=== PATIENT | male | born 1935 | race Two or more races ===

== ENCOUNTER 2020-02-05 22:58 | Inpatient (IN) | payer MEDICARE, OTHER ==
[~2020-02-05] VITALS: Ht 172.7 cm; Wt 88.5 kg
--- NOTE | 2020-02-05 23:11 | NUR ---
MARCELA FROM [facility] FOR C/O FEVER. PT ALERT AND RESPONSIVE. BREATHING EVENLY. SATTING 94-96% ON R/A. PT WAS ASSISTED TO BED 5. PLACED ON A MONITOR AND ISOLATION PRECAUTION. WILL CONT TO MONITOR.
[2020-02-05] MEDS ORDERED: ACETAMINOPHEN 650 MG/SUPP.RECT RC ONE ×3 (23:12→23:30)
--- NOTE | 2020-02-05 23:16 | NUR ---
URINE COLLECTED AND SENT TO LAB
--- NOTE | 2020-02-05 23:18 | NUR ---
COVID SWAB COLLECTED AND SENT TO LAB
--- NOTE | 2020-02-05 23:20 | NUR ---
IV INITATED LAC 20G. LABS DRAWN FROM SITE. ELECTRIC WELL LOGGING OPERATOR AT BEDSIDE FOR COLLECTION. IV INTACT AND PATENT, PLACED ON SALINE LOCK
[2020-02-05] MEDS ORDERED: VANCOMYCIN 1 GM VIAL ONE (23:29)
[2020-02-05] MEDS ORDERED: PIPERACILLIN /TAZOBACTAM 3.375 G VIAL IV ONE (23:29)
[2020-02-05 23:30] LABS: BASOPHILS % (AUTO) 0.6 % (0.0-2.0); EOSINOPHILS % (AUTO) 1.2 % (0.0-6.0); HEMATOCRIT 38 % (39-51); HEMOGLOBIN 12.6 g/dL (13.5-17.5); LYMPHOCYTES # (AUTO) 0.6 /CMM (0.8-4.8); LYMPHOCYTES % (AUTO) 8.3 % (20.0-44.0); MEAN CORPUSCULAR HGB CONC 33 g/dl (31.0-36.0); MEAN CORPUSCULAR VOLUME 92 fL (80-96); MONOCYTES # (AUTO) 0.6 /CMM (0.1-1.30); MONOCYTES % (AUTO) 7.2 % (2.0-12.0); NEUTROPHILS # (AUTO) 6.4 /CMM (1.8-8.9); NEUTROPHILS % (AUTO) 82.7 % (43.0-81.0); PLATELET COUNT (AUTO) 185 /CMM (150-450); RED BLOOD CELL COUNT(AUTO) 4.11 MIL/uL (4.5-6.0); WHITE BLOOD COUNT (AUTO) 7.7 K/uL (4.3-11.0)
[2020-02-05] MEDS ORDERED: IV NS 0.9% 1,000 ML BAG IV ONE ×2 (23:30)
[2020-02-05] MEDS ORDERED: PIPERACILLIN /TAZOBACTAM 3.375 G in IV D5W 50 ML IV ONE (23:30)
[2020-02-05] MEDS ORDERED: VANCOMYCIN 1 GM in IV D5W 250 ML IV ONE (23:30)
[2020-02-05 23:31] LABS: APPEARANCE,URINE Clear (CLEAR); BILIRUBIN,URINE Negative (NEGATIVE); BLOOD, URINE Trace-intact Ery/uL (NEGATIVE); COLOR,URINE Yellow (YELLOW); KETONES,URINE Negative (NEGATIVE); LEUKOCYTE ESTERASE ,URINE Negative (NEGATIVE); NITRITE, URINE Negative (NEGATIVE); PH,URINE 6.5 (5.0-8.0); PROTEIN,URINE Negative (NEGATIVE); UGLUCOSE Negative (NEGATIVE)
--- NOTE | 2020-02-05 23:34 | NUR ---
RT AT BEDSIDE FOR ABG
[2020-02-05 23:37] LABS: CALCIUM, SERUM 8.5 mg/dL (8.5-10.1); CARBON DIOXIDE 26 mmol/L (21-32); CHLORIDE 107 mmol/L (98-107); CREATININE 1.3 mg/dL (0.6-1.3); GLUCOSE 138 mg/dL (74-106); POTASSIUM 3.4 mmol/L (3.5-5.1); SODIUM SERUM 143 mmol/L (136-145); UREA NITROGEN, BLOOD 21 mg/dL (7-18)
[2020-02-05 23:40] LABS: ABG BASE EXCESS -0.5 mmol/L; ABG PCO2 36.2 mmHg (35.0-45.0); ABG PH 7.429 (7.350-7.450); ABG PO2 70.1 mmHg (75.0-100.0); AaDO2 36.3 mmHg; COHb 0.3 % (0.5-1.5); MetHb 0.4 % (0.0-1.5); O2Hb 92.3 % (94.0-97.0); SITE, ABG Left Radial; VENT MODE, BG room air
[2020-02-05] MEDS ORDERED: DOCU100C36 PO (23:45)
[2020-02-05] MEDS ORDERED: TRAZ-182 PO (23:45)
[2020-02-05] MEDS ORDERED: METO25TA6 PO (23:45)
[2020-02-05] MEDS ORDERED: ASPI-1169 PO (23:45)
[2020-02-05] MEDS ORDERED: MULT-754 PO (23:45)
[2020-02-05] MEDS ORDERED: DIVA500T2 GT (23:45)
[2020-02-05] MEDS ORDERED: ATOR80TA PO (23:45)
--- NOTE | 2020-02-05 23:46 | NUR ---
patient pulled out iv.
--- NOTE | 2020-02-05 23:48 | NUR ---
PT SEEMS AGITATED. CONSTANTLY MOVING IN BED AND PULLED OUT HIS IV LINE. MD JUAREZ AWARE W/ A NEW ORDER FOR ATIVAN. NOTED
[2020-02-05 23:49] LABS: ALANINE AMINOTRANSFERASE 25 U/L (12-78); ALBUMIN 3.6 g/dL (3.4-5.0); ALKALINE PHOSPHATASE 112 U/L (46-116); ASPARTATE AMINOTRANSFERASE 28 U/L (15-37); B-TYPE NATRIURETIC PEPTIDE 317 PG/ML (0-125); BILIRUBIN,DIRECT 0.1 mg/dL (0.0-0.2); BILIRUBIN,TOTAL 0.6 mg/dL (0.2-1.0); TOTAL PROTEIN, SERUM 6.7 g/dL (6.4-8.2)
[2020-02-05] MEDS ORDERED: LORAZEPAM INJ 2 MG/ML VIAL ONE (23:49)
[2020-02-05 23:50] LABS: D-DIMER 0.75 mg/L(FEU (0.17-0.50)
--- NOTE | 2020-02-05 23:52 | NUR ---
RADIOLOGY AT BEDSIDE FOR CXR
[2020-02-06] LABS: BACTERIA,URINE Few /HPF (None Seen); SQUAMOUS EPITHELIAL CELL,UR Few /HPF (None Seen); WBC,URINE 0-2 /HPF (0-3)
[2020-02-06 00:01] LABS: C-REACTIVE PROTEIN 1.9 mg/dL (0.0-0.9); CREATINE KINASE, TOTAL 157 U/L (39-308); FERRITIN 81 ng/mL (8-388)
--- NOTE | 2020-02-06 00:04 | NUR ---
NEW IV LINE ESTABLISHED ON THE LEFT AC 20G.
--- NOTE | 2020-02-06 00:15 | NUR ---
PAGED NURSE SUP FOR TELE BED
--- NOTE | 2020-02-06 00:22 | NUR ---
BED ASSIGNMENT 103
[2020-02-06] MEDS ORDERED: LORAZEPAM INJ 2 MG/ML VIAL IV ONE (00:30)
--- NOTE | 2020-02-06 00:34 | NUR ---
REPORT GIVEN TO AMARJIT ZIMMERMAN FOR RIVAS
--- NOTE | 2020-02-06 00:35 | NUR ---
0035 REPORT RECEIVED FROM AMARJIT JIMENEZ WITH QUESTIONS ANSWERED.
--- NOTE | 2020-02-06 00:45 | NUR ---
0045 ADMITTED FROM ER 84 YEAR OLD ISRAELI SPEAKING MALE VIA GURNEY FOR FEVER, R/O COVID. PATIENT AWAKE AND VERBALLY RESPONSIVE. CONFUSED AND UNABLE TO PROVIDE INFORMATION WHEN ASKED. PLACED ON NATURAL RESOURCES EXTENSION EDUCATOR. SR IN THE 80S. DENIED PAIN WHEN ASKED THRU ISRAELI SPEAKING STAFF. ADMISSION CARE RENDERED. TOTALLY DEPENDENT ON ALL ASPECTS OF ADLS. INCONTINENT OF BOWEL AND BLADDER. NO SKIN BREAKDOWN NOTED. ON ROOM AIR WITH NO SIGNS OF RESPIRATORY DISTRESS NOTED. VITAL SIGNS TAKEN AND RECORDED. PLACED ON DROPLET ISOLATION FOR SUSPECTED COVID. ALL PRECAUTIONS STRICTLY OBSERVED. PATIENT WEARING SURGICAL MASK. CALL LIGHT PLACED WITHIN REACH AND INSTRUCTED TO USE FOR ASSISTANCE.
--- NOTE | 2020-02-06 00:50 | NUR ---
PT TRANSFERED PER [facility] [employer]
[2020-02-06] MEDS ORDERED: ONDANSETRON HCL/PF 4 MG/2 ML VIAL IVP PRN (01:00)
[2020-02-06] MEDS ORDERED: ACETAMINOPHEN 650 MG/SUPP.RECT RC PRN (01:00)
[2020-02-06] MEDS ORDERED: IV NS 0.9% 1,000 ML IV SCH (01:00)
--- NOTE | 2020-02-06 01:30 | NUR ---
0130 HARDEEP ALEX NOTIFIED US THAT SHE SPOKE WITH PATIENT'S SON DR. BERTO PARSONS JR AND HE VERIFIED PATIENT'S CODE STATUS DNR/DNI.
[2020-02-06] MEDS: ENOXAPARIN SODIUM 40 MG/0.4 ML DISP.SYRIN SQ SCH (01:50)
--- NOTE | 2020-02-06 02:20 | NUR ---
0220 PATIENT IS VERY CONFUSED AND IS TRYING TO GET OUT OF BED AND PULL HIS IV ACCESS DESPITE REDIRECTION. CONT TO DENY PAIN WHEN ASKED. KEPT CLEAN AND DRY. CALL LIGHT PLACED WITHIN REACH. NEEDS ATTENDED. HARDEEP ALEX NOTIFIED OF PATIENT'S CONFUSION WITH ORDER MADE. CRITICAL LACTIC RESULT 2.6 RELAYED WITH ORDER TO GIVE 1L NS BOLUS. ORDER NOTED AND CARRIED OUT.
[2020-02-06] MEDS ORDERED: IV NS 0.9% 1,000 ML IV ONE (02:30)
[2020-02-06] MEDS ORDERED: PIPERACILLIN /TAZOBACTAM 3.375 G VIAL IV ONE (05:47)
[2020-02-06] MEDS: PIPERACILLIN /TAZOBACTAM 3.375 G in IV D5W 50 ML IV SCH ×3 (05:55→20:33)
[2020-02-06] MEDS ORDERED: FEE PK DOSING 1 MIN EA MC ONE (06:44)
[2020-02-06 06:46] LABS: ALBUMIN 2.8 g/dL (3.4-5.0); BASOPHILS % (AUTO) 0.3 % (0.0-2.0); BILIRUBIN,TOTAL 0.8 mg/dL (0.2-1.0); CALCIUM, SERUM 7.5 mg/dL (8.5-10.1); CREATININE 1.1 mg/dL (0.6-1.3); EOSINOPHILS % (AUTO) 0.5 % (0.0-6.0); HEMATOCRIT 32 % (39-51); HEMOGLOBIN 10.7 g/dL (13.5-17.5); LYMPHOCYTES # (AUTO) 1.5 /CMM (0.8-4.8); LYMPHOCYTES % (AUTO) 17.7 % (20.0-44.0); MAGNESIUM 1.7 mg/dL (1.8-2.4); MEAN CORPUSCULAR HGB CONC 34 g/dl (31.0-36.0); MEAN CORPUSCULAR VOLUME 92 fL (80-96); MONOCYTES # (AUTO) 0.8 /CMM (0.1-1.30); MONOCYTES % (AUTO) 9.4 % (2.0-12.0); NEUTROPHILS % (AUTO) 72.1 % (43.0-81.0); PHOSPHORUS 2.8 mg/dL (2.5-4.9); PLATELET COUNT (AUTO) 148 /CMM (150-450); POTASSIUM 3.1 mmol/L (3.5-5.1); RED BLOOD CELL COUNT(AUTO) 3.47 MIL/uL (4.5-6.0); TOTAL PROTEIN, SERUM 5.5 g/dL (6.4-8.2); WHITE BLOOD COUNT (AUTO) 8.4 K/uL (4.3-11.0)
[2020-02-06 06:56] LABS: THYROID STIMULATING HORMONE 1.979 uIU/mL (0.358-3.74)
--- NOTE | 2020-02-06 07:30 | NUR ---
RN OPENING NOTE: Received patient in bed. Awake, alert and confused. PAtient on bilateral soft-wrist restraints. Isolation precaution to R/O covid in place. No pain noted nor reported. IV site clean, dry, patent and intact. IV infusion running and being tolerated well. Tele monitor showing sinus bradycardia @ 58 noted. Call light in reach. Bed locked, low and at semi-hugo's position. Side rails up x3. Safety ensured and observed. Will continue to monitor.
[2020-02-06] MEDS ORDERED: IV NS 0.9% 1,000 ML IV PRN (07:43)
[2020-02-06] MEDS: PANTOPRAZOLE 40 MG VIAL IV SCH (09:21)
[2020-02-06] MEDS ORDERED: Magnesium 1GM/D5W 100ML PREMIX 100 ML IV SCH (10:00)
[2020-02-06] MEDS: MULTIVITAMINS,THERAGRAN 1 UDTAB TABLET PO SCH (10:40)
[2020-02-06] MEDS: ASPIRIN 81 MG TAB.CHEW PO SCH (10:40)
[2020-02-06] MEDS: DIVALPROEX SODIUM 250 MG TABLET.DR PO SCH ×2 (10:41→17:00)
[2020-02-06] MEDS: DOCUSATE SODIUM 100 MG CAPSULE PO SCH (10:41)
[2020-02-06] MEDS: METOPROLOL TARTRATE 25 MG TABLET PO SCH ×2 (10:41→17:00)
[2020-02-06] MEDS: POTASSIUM CHLORIDE 20 MEQ TAB.PRT.SR PO SCH ×2 (11:28→13:42)
[2020-02-06] MEDS ORDERED: ASPIRIN 81 MG TAB.CHEW PO SCH (13:00)
--- NOTE | 2020-02-06 16:01 | NUR ---
PT AGITATED AND FIGHTING, RN/ABDIFATAH ASKED TO DO THE EXAM LATER WHEN PT IS SEDATED
[2020-02-06] MEDS ORDERED: VANCOMYCIN 1.25 GM in IV D5W 250 ML IV SCH (18:00)
--- NOTE | 2020-02-06 19:40 | NUR ---
RN CLOSING NOTE: Behavior of pulling lines and being non compliant with care observed with patient throughout shift. IV site was re-started twice on shift with both instances eventually being pulled out by patient. Restraints noted to be not as effective because patient is able to release himself from the restraints. Patient was seen by Juan Luis Erazo earlier on shift and is aware of all the issues stated above. Midline insertion ordered for patient, scheduled IV infusions held as per instructions. Code status was confirmed with son ( Nicolas Hayes Jr.) as DNR/DNI per Juan Luis Erazo's instructions. Midline was started later on shift but patient noted with agitation episodes and confusion due to dementia, IV infusions to be restarted when patient has calmed down. Patient remains awake, alert and confused. appears cooperative but agitation still noted. Patient currently back on bilateral soft-wrist restraint. Isolation precaution to R/O covid in place. No pain noted nor reported. IV site clean, dry, patent, intact and hidden from patient. Tele monitor showing sinus bradycardia. Call light in reach. Bed locked, low and at semi-hugo's position. Side rails up x3. Safety ensured and observed. Applicable due medications given. Treatment given as ordered. Endorsed to oncoming shift for RIVAS.
--- NOTE | 2020-02-06 19:55 | NUR ---
RN OPENING NOTE: Received patient in bed. Awake, alert and confused. PAtient on bilateral soft-wrist restraints. Isolation precaution to R/O covid in place. No pain noted nor reported. IV site clean, dry, patent and intact. IV infusion running and being tolerated well. Tele monitor showing sinus bradycardia @ 58 noted. Call light in reach. Bed locked, low and at semi-hugo's position. Side rails up x3. Safety ensured and observed. Will continue to monitor. Addendum: 02/06/20 at 2013 by ABDIAFTAH CANADA RN wrong time charting
[2020-02-06 20:00] VITALS: BP 141/49
[2020-02-06] MEDS: Magnesium 1GM/D5W 100ML PREMIX 100 ML IV SCH ×2 (20:00→20:32)
[2020-02-06] MEDS ORDERED: ATORVASTATIN 40 MG TABLET PO SCH (22:00)
--- NOTE | 2020-02-06 22:45 | NUR ---
PATIENT PULLED OUT MIDLINE, SAYS HE NEEDED TO GO TO RESTROOM. MINIMAL BLOOD LOSS WAS ASSESSED. PATIENT IS BACK IN BED. SITTER OUTSIDE ROOM.
[2020-02-06] MEDS: TRAZODONE 50 MG TABLET PO SCH (23:00)
[2020-02-07] VITALS: BP 152/40
--- NOTE | 2020-02-07 00:45 | NUR ---
NEW MIDLINE INSERTED ON SO #18. PATENT AND FLUSHING. RESTRAINTS ON PATIENT AND SITTER OUTSIDE OF ROOM.
[2020-02-07] MEDS: ENOXAPARIN SODIUM 40 MG/0.4 ML DISP.SYRIN SQ SCH (01:52)
[2020-02-07] MEDS ORDERED: VANCOMYCIN 1.25 GM in IV D5W 250 ML IV SCH (02:00)
--- NOTE | 2020-02-07 02:18 | NUR ---
CALLED [facility] AFTER HOURS. REGARDING PATIENTS IV MEDICATIONS THAT HAVE NOT BEEN GIVEN DUE TO PATIENT PULLING OUT IV. PHARMACIST IS AWARE AND WILL CHANGE TIMES.
[2020-02-07] MEDS ORDERED: Magnesium 1GM/D5W 100ML PREMIX 100 ML IV SCH (03:00)
[2020-02-07] MEDS: PIPERACILLIN /TAZOBACTAM 3.375 G in IV D5W 50 ML IV SCH ×4 (03:11→17:07)
[2020-02-07 04:00] VITALS: BP 158/75
[2020-02-07 06:35] LABS: BASOPHILS % (AUTO) 0.4 % (0.0-2.0); HEMATOCRIT 34 % (39-51); HEMOGLOBIN 11.3 g/dL (13.5-17.5); LYMPHOCYTES # (AUTO) 1.5 /CMM (0.8-4.8); MEAN CORPUSCULAR HGB CONC 34 g/dl (31.0-36.0); MEAN CORPUSCULAR VOLUME 92 fL (80-96); MONOCYTES # (AUTO) 0.6 /CMM (0.1-1.30); MONOCYTES % (AUTO) 7.6 % (2.0-12.0); NEUTROPHILS # (AUTO) 4.9 /CMM (1.8-8.9); PLATELET COUNT (AUTO) 160 /CMM (150-450); RED BLOOD CELL COUNT(AUTO) 3.65 MIL/uL (4.5-6.0); WHITE BLOOD COUNT (AUTO) 7.3 K/uL (4.3-11.0)
[2020-02-07 06:40] LABS: ALBUMIN 2.8 g/dL (3.4-5.0); CALCIUM, SERUM 8.1 mg/dL (8.5-10.1); CREATININE 0.9 mg/dL (0.6-1.3); MAGNESIUM 2.3 mg/dL (1.8-2.4); PHOSPHORUS 3.2 mg/dL (2.5-4.9); POTASSIUM 3.5 mmol/L (3.5-5.1); TOTAL PROTEIN, SERUM 5.7 g/dL (6.4-8.2)
--- NOTE | 2020-02-07 07:00 | NUR ---
RN NOTE: RECEIVED PT ON BED , A/Ox1, CONFUSED, ON RA, RESPIRATION EVEN AND UNLABORED, NO SOB NOTED , ON TELE SR HR IN 70'S , PT IS ABLE TO GETS OUT OF THE BED AND PULLS ON HIS IV LINES , AND MANAGE TO GET OUT OF MARYJO WRIST PROTECTIVE DEVICE AT TIMES, SITTER AT THE BEDSIDE FOR PT'S SAFETY, SR UP x3, CALL LIGHT WITHIN EASY REACH, BED LOCKED AND IN LOWEST POSITION, R UPPER ARM MIDLINE INTACT, SWALLOWING EVAL IS PENDING , PT IS NPO AT THIS TIME, CONTINUE TO MONITOR .
[2020-02-07 08:00] VITALS: BP 154/56
[2020-02-07] MEDS: PANTOPRAZOLE 40 MG VIAL IV SCH (08:22)
[2020-02-07] MEDS: ASPIRIN 81 MG TAB.CHEW PO SCH (08:22)
[2020-02-07] MEDS: DOCUSATE SODIUM 100 MG CAPSULE PO SCH (08:22)
[2020-02-07] MEDS: DIVALPROEX SODIUM 250 MG TABLET.DR PO SCH ×2 (08:22→16:28)
[2020-02-07] MEDS: METOPROLOL TARTRATE 25 MG TABLET PO SCH ×2 (08:23→16:28)
[2020-02-07] MEDS: MULTIVITAMINS,THERAGRAN 1 UDTAB TABLET PO SCH (08:24)
--- NOTE | 2020-02-07 10:38 | NUR ---
WOUND CARE CONSULT: REVIEWED CHART AND SPOKE WITH NURSING STAFF REGARDING PREVIOUS GERMAINE SCORE OF 10. PER NURSING STAFF, PT IS NOW AMBULATORY WITH CURRENT GERMAINE OF 20. WILL SEE PRN.
--- NOTE | 2020-02-07 12:00 | NUR ---
RN NOTES PATIENT CONFUSED AND PULLED R UPPER ARM MIDLINE OUT WHILE HE WAS OFF MARYJO. SOFT RESTRAINS. RESTRAINS PLACED BACK ON PT WRISTS FOR HIS SAFETY .
--- NOTE | 2020-02-07 12:00 | NUR ---
AMARJIT NOTES NEW IV G 20 INSERTED ON R UPPER ARM. Addendum: 02/07/20 at 1300 by ESTEFANÍA MADISON RN CORRECTION NEW IV G 20 INSERTED ON LEFT UPPER ARM.
--- NOTE | 2020-02-07 13:00 | NUR ---
RN NOTES PT GOT AGITATED AND TEARED APART THE MARYJO. SOFT RESTRAINS, PT IS MORE COOPERATIVE WITH NO WRIST RESTRAINS ON . SITTER AT THE BEDSIDE FOR PT SAFETY, RESTRAINS DISCONTINUED PER MD ORDER .
[2020-02-07 16:00] VITALS: BP 145/78
--- NOTE | 2020-02-07 18:15 | NUR ---
RN NOTES PT PULLED OUT L UPPER ARM IV OUT, PT IS VERY STRONG AND GETS AGITATED EASILY, LUCY SKY DIVER NOITFED , NEW ORDER RECEIVED .
--- NOTE | 2020-02-07 18:30 | NUR ---
RN NOTES PT STABLE, SITTER AT THE BEDSIDE, NO DISTRESS NOTED, WILL ENDORSE TO NOTCHER NURSE FOR CONTINUITY OF CARE.
[2020-02-07] MEDS: QUETIAPINE FUMARATE 25 MG TABLET PO SCH (18:33)
--- NOTE | 2020-02-07 19:05 | NUR ---
RN OPENING NOTES RECEIVED PT ON BED AWAKE A/O X 3 TURK[place] SPEAKING NO AGITATION NOTED AT THIS SITTER AVAILABLE WATCHING PATIENT, NO SIGN AND SYMPTOMS OF RESPIRATORY DISTRESS, SPO2 98% VIA RA, DROPLET ISOLATION MAINTAINED FOR R/O COVID SAFETY MEASURE MAINTAINED BED ON LOWEST POSITION AND CALL LIGHT WITHIN REACH WILL CONT TO MONITOR
[2020-02-07 20:00] VITALS: BP 123/75
[2020-02-07] MEDS: TRAZODONE 50 MG TABLET PO SCH (22:10)
[2020-02-08] MEDS: ENOXAPARIN SODIUM 40 MG/0.4 ML DISP.SYRIN SQ SCH (00:01)
[2020-02-08] MEDS: PIPERACILLIN /TAZOBACTAM 3.375 G in IV D5W 50 ML IV SCH ×4 (00:05→12:05)
[2020-02-08 04:00] VITALS: BP 130/74
[2020-02-08 06:15] LABS: BASOPHILS % (AUTO) 0.5 % (0.0-2.0); EOSINOPHILS % (AUTO) 6.8 % (0.0-6.0); HEMATOCRIT 34 % (39-51); HEMOGLOBIN 11.6 g/dL (13.5-17.5); LYMPHOCYTES # (AUTO) 1.7 /CMM (0.8-4.8); LYMPHOCYTES % (AUTO) 27.2 % (20.0-44.0); MEAN CORPUSCULAR HGB CONC 34 g/dl (31.0-36.0); MEAN CORPUSCULAR VOLUME 91 fL (80-96); MONOCYTES # (AUTO) 0.6 /CMM (0.1-1.30); MONOCYTES % (AUTO) 10.1 % (2.0-12.0); NEUTROPHILS # (AUTO) 3.4 /CMM (1.8-8.9); NEUTROPHILS % (AUTO) 55.4 % (43.0-81.0); PLATELET COUNT (AUTO) 195 /CMM (150-450); RED BLOOD CELL COUNT(AUTO) 3.73 MIL/uL (4.5-6.0); WHITE BLOOD COUNT (AUTO) 6.1 K/uL (4.3-11.0)
[2020-02-08 06:47] LABS: CALCIUM, SERUM 8.1 mg/dL (8.5-10.1); CREATININE 1.1 mg/dL (0.6-1.3); POTASSIUM 3.4 mmol/L (3.5-5.1)
--- NOTE | 2020-02-08 07:30 | NUR ---
RN OPENING NOTE RECEIVED PATIENT RESTING IN BED, NO ACUTE DISTRESS NOTED. A/O X2, PATIENT IS CONFUSED. ON ROOM AIR SATURATING WELL, NO ACUTE RESPIRATORY DISTRESS NOTED. PATIENT HAS A SITTER PRESENT AT BEDSIDE. SAFETY MAINTAINED, CALL LIGHT WITHIN REACH, WILL CONTINUE TO MONITOR CLOSELY.
--- NOTE | 2020-02-08 07:42 | NUR ---
RN CLOSING NOTES PT ON BED SLEEPING SITTER AT BEDSIDE, NO SIGN AND SYMPTOMS OF RESPIRATORY DISTRESS, ON RA SPO2 99% ALL NEEDS ATTENDED NO SIGNIFICANT CHANGES ON CONDITION NOTED SAFETY MEASURE MAINTAINED WILL ENDORSED TO AM SHIFT NURSE
[2020-02-08 08:00] VITALS: BP 131/84
[2020-02-08] MEDS: DOCUSATE SODIUM 100 MG CAPSULE PO SCH (08:06)
[2020-02-08] MEDS: MULTIVITAMINS,THERAGRAN 1 UDTAB TABLET PO SCH (08:06)
[2020-02-08] MEDS: DIVALPROEX SODIUM 250 MG TABLET.DR PO SCH ×2 (08:06→17:55)
[2020-02-08] MEDS: PANTOPRAZOLE 40 MG VIAL IV SCH (08:06)
[2020-02-08] MEDS: QUETIAPINE FUMARATE 25 MG TABLET PO SCH ×2 (08:07→17:56)
[2020-02-08] MEDS: METOPROLOL TARTRATE 25 MG TABLET PO SCH ×2 (08:07→17:56)
[2020-02-08] MEDS: ASPIRIN 81 MG TAB.CHEW PO SCH (08:08)
[2020-02-08] MEDS ORDERED: POTASSIUM CHLORIDE 20 MEQ POWDER PACKET PO SCH (12:00)
--- NOTE | 2020-02-08 12:20 | NUR ---
RN NOTE PATIENT IS CONFUSED. PULLED OUT HIS IV LINE ONCE AGAIN. MD NOTIFIED. OK TO KEEP PATIENT WITHOUT AN IV ACCESS FOR NOW. MD WILL ADJUST PATIENT MEDS TO PO. UNABLE TO HANG ZOSYN. WILL TALK TO ID FOR ALTERNATIVE. SAFETY MAINTAINED, CALL LIGHT WITHIN REACH, SITTER AT BEDSIDE, WILL CONTINUE TO MONITOR.
[2020-02-08 16:00] VITALS: BP 152/60
[2020-02-08] MEDS ORDERED: CEFTRIAXONE 1 G VIAL IM SCH (18:00)
--- NOTE | 2020-02-08 19:28 | NUR ---
RN NOTE ALL PATIENT NEEDS MET, NO ACUTE CHANGES TO PATIENT CONDITION DURING MY SHIFT. ID SAW THE PATIENT AND ADJUSTED IV MEDICATION DUE TO NO IV ACCESS. SAFETY MAINTAINED, CALL LIGHT WITHIN REACH, ENDORSED TO PM NURSE FOR CONTINUITY OF CARE.
--- NOTE | 2020-02-08 19:30 | NUR ---
received patient awake and walking in the room. client is A/O X 3. no s/s of pain or distress, the client denies pain a this time. VS WNL. All needs rendered at this time, will continue to monitor. Safety mechanisms in place. Bed locked in the lowest position and call light within reach, will continue to monitor.
[2020-02-08 20:00] VITALS: BP 100/59
[2020-02-08] MEDS: TRAZODONE 50 MG TABLET PO SCH (21:29)
--- NOTE | 2020-02-08 22:49 | NUR ---
RN OPENING Received the patient resting in bed. VS WNL, no s/s of pain noted. The client is nonverbal, obtunded. The client exhibits no distress at this time. On external monitor, SR, HR 80's. D5 NS running at 75ml/hr on R arm. All Iv lines flushing well. All needs rendered at this time. Safety mechanisms in place, bed locked in the lowest position, call light within reach. will continue to monitor.
[2020-02-09] MEDS: ENOXAPARIN SODIUM 40 MG/0.4 ML DISP.SYRIN SQ SCH (00:06)
--- NOTE | 2020-02-09 01:53 | NUR ---
there will be no further documentation as [employer] is bri to be offline. The client is stable no cahnge of condition at this time.
--- NOTE | 2020-02-09 06:53 | NUR ---
all documentation in which the system was down was given to [facility]. The patient was transferred to [facility] at 0620.
[2020-02-09 07:10] LABS: CALCIUM, SERUM 8.1 mg/dL (8.5-10.1); CREATININE 0.9 mg/dL (0.6-1.3); POTASSIUM 3.3 mmol/L (3.5-5.1)
[2020-02-09] MEDS ORDERED: PANTOPRAZOLE 40 MG TABLET.DR PO SCH (07:30)
--- NOTE | 2020-02-09 07:48 | NUR ---
MS RN OPENING NOTE PATIENT IN BED RESTING COMFORTABLY. PATIENT IN NO ACUTE DISTRESS. NO SOB NOTED. PATIENT BREATHING IS EVEN AND UNLABORED. PATIENT WITH 1:1 SITTER. PATIENT BED ALARM IS ON. PATIENT SAFETY PRECAUTIONS IN PLACE. PATIENT BED IS LOCKED AND IN LOWEST POSITION. CALL LIGHT WITHIN REACH. WILL CONTINUE TO MONITOR.
[2020-02-09] MEDS: MULTIVITAMINS,THERAGRAN 1 UDTAB TABLET PO SCH (08:57)
[2020-02-09] MEDS: ASPIRIN 81 MG TAB.CHEW PO SCH (08:57)
[2020-02-09] MEDS: DIVALPROEX SODIUM 250 MG TABLET.DR PO SCH ×2 (08:57→13:03)
[2020-02-09] MEDS: QUETIAPINE FUMARATE 25 MG TABLET PO SCH (08:57)
[2020-02-09] MEDS: METOPROLOL TARTRATE 25 MG TABLET PO SCH (08:58)
[2020-02-09] MEDS: DOCUSATE SODIUM 100 MG CAPSULE PO SCH (08:58)
[2020-02-09] MEDS ORDERED: POTASSIUM CHLORIDE 20 MEQ TAB.PRT.SR PO SCH (10:00)
[2020-02-09 12:00] VITALS: BP 137/71
[2020-02-09] MEDS ORDERED: QUETIAPINE FUMARATE 25 MG TABLET PO SCH (13:00)
--- NOTE | 2020-02-09 15:45 | NUR ---
PINKING MACHINE OPERATOR NOTE PATIENT MEDICALLY CLEARED FOR DISCHARGE. PATIENT IN NO ACUTE DISTRESS. NO SOB NOTED. PATIENT BREATHING IS EVEN AND UNLABORED. DC INSTRUCTIONS PROVIDED TO PATIENT WITH RN ORTHO PRESENT. PATIENT UNABLE TO COMPREHEND. PATIENT ID BAND REMOVED. DC PAPERWORK AND BELONGINGS LIST SIGNED BY TWO NURSES. PATIENT SKIN ASSESSED, NO NEW SKIN BREAKDOWN NOTED. PATIENT KEPT CLEAN, DRY AND COMFORTABLE THROUGHOUT SHIFT. NEEDS AND CONCERNS ADDRESSED. PATIENT WENT BY AMBULANCE WITH TWO LOCOMOTIVE CRANE OPERATOR TO SNF. REPORT GIVEN TO EDY OCASIO AT [facility]. MD AWARE OF DISCHARGE.
== END 2020-02-09 15:50 | DRG 871 ==
LOC: ER 23:00 → TELE1 02-06 00:23 → MEDSG1 02-07 10:41
PROVIDERS: ADMIT Nurse Practitioner Acute Care; ATTEND Nurse Practitioner Acute Care
PROC: 05H533Z Insertion of Infusion Device into Right Subclavian Vein, Percutaneous Approach (ICD-10-PCS; 2020-02-06)
PROC: B546ZZA Ultrasonography of Right Subclavian Vein, Guidance (ICD-10-PCS; 2020-02-06)
PROC: 05H533Z Insertion of Infusion Device into Right Subclavian Vein, Percutaneous Approach (ICD-10-PCS; principal; 2020-02-07)
PROC: B546ZZA Ultrasonography of Right Subclavian Vein, Guidance (ICD-10-PCS; 2020-02-07)
DX: A41.9 Sepsis, unspecified organism (principal); G93.41 Metabolic encephalopathy; I21.A1 Myocardial infarction type 2; J18.9 Pneumonia, unspecified organism; E87.2 Acidosis; N39.0 Urinary tract infection, site not specified; N17.9 Acute kidney failure, unspecified; E44.1 Mild protein-calorie malnutrition; Z86.73 Personal history of transient ischemic attack (TIA), and cerebral infarction without residual deficits; E83.42 Hypomagnesemia; E87.6 Hypokalemia; K21.9 Gastro-esophageal reflux disease without esophagitis; G20 Parkinson's disease; B96.4 Proteus (mirabilis) (morganii) as the cause of diseases classified elsewhere; D63.8 Anemia in other chronic diseases classified elsewhere; E11.22 Type 2 diabetes mellitus with diabetic chronic kidney disease; E66.01 Morbid (severe) obesity due to excess calories; I12.9 Hypertensive chronic kidney disease with stage 1 through stage 4 chronic kidney disease, or unspecified chronic kidney disease; N18.1 Chronic kidney disease, stage 1; Z66 Do not resuscitate; Z87.891 Personal history of nicotine dependence; E88.09 Other disorders of plasma-protein metabolism, not elsewhere classified; Z68.29 Body mass index [BMI] 29.0-29.9, adult; M62.50 Muscle wasting and atrophy, not elsewhere classified, unspecified site; F25.9 Schizoaffective disorder, unspecified; F29 Unspecified psychosis not due to a substance or known physiological condition; D50.9 Iron deficiency anemia, unspecified
CPT/HCPCS: 36415; 36600; 71045-TC; 76705-TC; 80048-TC; 80053-TC; 80061-TC; 80076-TC; 80164-TC; 81000-TC; 82550-TC; 82728-TC; 82803-TC; 83540-TC; 83605-TC; 83615-TC; 83735-TC; 83880; 84100-TC; 84443-TC; 84484-TC; 85025-TC; 85378-TC; 85730-TC; 86140-TC; 87040-TC; 87081-TC; 87086-TC; 87186-TC; 92611-TC; 93307-TC; 97116-TC; 97530-TC; C9113; G0378; J0696; J1650; J2060; J2543; J3370; J3475; J7030; J7050; J7060; U0003-CS

== ENCOUNTER 2023-03-12 15:36 | Inpatient (IN) | payer MEDICARE, OTHER ==
[~2023-03-12] VITALS: Ht 162.6 cm; Wt 63.5 kg
[~2023-03-12 15:36] MED LIST: ASPI-1169 PO; ATOR80TA PO; DIVA500T2 PO; DOCU100C36 PO; METO25TA6 PO; MULT-754 PO; TRAZ-182 PO
[2023-03-12] MEDS ORDERED: MEMA5TAB PO (17:13)
[2023-03-12] MEDS ORDERED: TRAZ-182 PO (17:13)
[2023-03-12] MEDS ORDERED: ATOR40TA PO (17:13)
[2023-03-12] MEDS ORDERED: VALS40TA4 PO (17:13)
[2023-03-12] MEDS ORDERED: LATA2.5D2 EACHEYE (17:13)
[2023-03-12] MEDS ORDERED: MULT-213 PO (17:13)
[2023-03-12] MEDS ORDERED: BISA10SU11 RC (17:14)
[2023-03-12] MEDS ORDERED: DEXT15DR23 EACHEYE (17:14)
[2023-03-12] MEDS ORDERED: ACET-868 PO (17:14)
[2023-03-12] MEDS ORDERED: MAGN400O6 PO (17:14)
[2023-03-12] MEDS ORDERED: NA P133E RC (17:14)
[2023-03-12 17:37] LABS: BASOPHILS % (AUTO) 0.6 % (0.0-2.0); EOSINOPHILS # (AUTO) 0.4 K/uL (0.0-0.7); EOSINOPHILS % (AUTO) 7.3 % (0.0-6.0); HEMATOCRIT 36 % (39-51); HEMOGLOBIN 11.9 g/dL (13.5-17.5); LYMPHOCYTES # (AUTO) 1.9 K/uL (0.8-4.8); LYMPHOCYTES % (AUTO) 35.5 % (20.0-44.0); MEAN CORPUSCULAR HEMOGLOBIN 30 PG (26.0-33.0); MEAN CORPUSCULAR HGB CONC 33 g/dl (31.0-36.0); MEAN CORPUSCULAR VOLUME 93 fL (80-96); MONOCYTES # (AUTO) 0.5 K/uL (0.1-1.30); NEUTROPHILS # (AUTO) 2.6 K/uL (1.8-8.9); NEUTROPHILS % (AUTO) 47.6 % (43.0-81.0); PLATELET COUNT (AUTO) 276 K/uL (150-450); RED BLOOD CELL COUNT(AUTO) 3.92 MIL/uL (4.5-6.0); RED CELL DISTRIBUTION WIDTH 14.2 % (11.5-15.0); WHITE BLOOD COUNT (AUTO) 5.4 K/uL (4.3-11.0)
[2023-03-12 18:05] LABS: CALCIUM, SERUM 8.9 mg/dL (8.5-10.1); CARBON DIOXIDE 26 mmol/L (21-32); CHLORIDE 102 mmol/L (98-107); CREATININE 0.9 mg/dL (0.6-1.3); GLUCOSE 130 mg/dL (74-106); POTASSIUM 4.5 mmol/L (3.5-5.1); SODIUM SERUM 138 mmol/L (136-145); UREA NITROGEN, BLOOD 22 mg/dL (7-18)
[2023-03-12 18:14] LABS: ALANINE AMINOTRANSFERASE 28 U/L (12-78); ALBUMIN 3.6 g/dL (3.4-5.0); ALCOHOL, BLOOD < 3 mg/dL (0-10); ALKALINE PHOSPHATASE 121 U/L (46-116); ASPARTATE AMINOTRANSFERASE 21 U/L (15-37); BILIRUBIN,DIRECT 0.1 mg/dL (0.0-0.2); BILIRUBIN,TOTAL 0.4 mg/dL (0.2-1.0); TOTAL PROTEIN, SERUM 7.4 g/dL (6.4-8.2)
[2023-03-12 18:15] LABS: ACETAMINOPHEN 0 ug/ml (10-30); SALICYLATE < 2.3 mg/dL (2.8-20.0)
[2023-03-13] MEDS ORDERED: MAG HYDROX/AL HYDROX/SIMETH 30 ML UDC PO PRN (00:30)
[2023-03-13] MEDS ORDERED: MAGNESIUM HYDROXIDE 30 ML UDC PO PRN ×2 (00:30→09:30)
[2023-03-13] MEDS ORDERED: BLOOD SUGAR DIAGNOSTIC 1 EACH STRIP IN ONE (01:00)
[2023-03-13 01:39] VITALS: BP 131/57; TEMP 97.6
[2023-03-13 08:00] VITALS: BP 131/57; TEMP 97.6; O2SAT 96
[2023-03-13] MEDS: ASPIRIN 81 MG TAB.CHEW PO SCH (08:31)
[2023-03-13] MEDS ORDERED: BISACODYL SUPP (10 MG) 10 MG/SUPP.RECT SUPP.RECT RC PRN (09:30)
[2023-03-13] MEDS ORDERED: NA PHOS,M-B/NA PHOS,DI-BA 1 EA ENEMA RC PRN (09:30)
[2023-03-13] MEDS ORDERED: ACETAMINOPHEN 325 MG TABLET PO PRN ×2 (09:30)
[2023-03-13] MEDS: LORAZEPAM 0.5 MG TABLET PO PRN (10:34)
[2023-03-13 16:00] VITALS: BP 120/61; TEMP 98; O2SAT 97
[2023-03-13] MEDS: METOPROLOL TARTRATE 25 MG TABLET PO SCH (16:34)
[2023-03-13] MEDS: VALSARTAN 40 MG TABLET PO SCH (16:35)
[2023-03-13 20:00] VITALS: BP 138/68; TEMP 97.6; O2SAT 97
[2023-03-13] MEDS ORDERED: DIVALPROEX SODIUM 500 MG TABLET.DR PO SCH (21:00)
[2023-03-13] MEDS: POLYVINYL ALCOHOL 15 ML BOTTLE EACHEYE SCH (21:19)
[2023-03-13] MEDS: TEMAZEPAM 7.5 MG CAPSULE PO PRN (21:21)
[2023-03-13] MEDS: ATORVASTATIN 40 MG TABLET PO SCH (21:23)
[2023-03-13] MEDS: LATANOPROST EYE DROP 0.005% 2.5 ML BOTTLE EACHEYE SCH (21:25)
[2023-03-13] MEDS ORDERED: ATORVASTATIN 40 MG TABLET PO SCH (22:00)
[2023-03-14] MEDS: LORAZEPAM 0.5 MG TABLET PO PRN ×2 (01:09→19:51)
[2023-03-14] MEDS: METOPROLOL TARTRATE 25 MG TABLET PO SCH ×2 (09:00→18:03)
[2023-03-14] MEDS: VALSARTAN 40 MG TABLET PO SCH ×2 (09:00→18:02)
[2023-03-14] MEDS ORDERED: ASPIRIN 81 MG TAB.CHEW PO SCH (09:00)
[2023-03-14] MEDS: DIVALPROEX SODIUM 500 MG TABLET.DR PO SCH ×3 (11:00→21:02)
[2023-03-14 16:00] VITALS: BP 142/76; TEMP 97.8; O2SAT 96
[2023-03-14] MEDS: POLYVINYL ALCOHOL 15 ML BOTTLE EACHEYE SCH ×2 (16:00→21:03)
[2023-03-14] MEDS: DOCUSATE SODIUM 100 MG CAPSULE PO SCH (16:00)
[2023-03-14] MEDS: MULTIVITAMINS,THERAGRAN 1 UDTAB TABLET PO SCH (16:01)
[2023-03-14] MEDS: MEMANTINE HCL 5 MG TABLET PO SCH (16:01)
[2023-03-14] MEDS: ASPIRIN 81 MG TAB.CHEW PO SCH (16:01)
[2023-03-14 20:00] VITALS: BP 110/62; TEMP 98.1; O2SAT 96
[2023-03-14] MEDS: ACETAMINOPHEN 325 MG TABLET PO PRN (21:02)
[2023-03-14] MEDS: LATANOPROST EYE DROP 0.005% 2.5 ML BOTTLE EACHEYE SCH (21:03)
[2023-03-14] MEDS: ATORVASTATIN 40 MG TABLET PO SCH (23:01)
[2023-03-14] MEDS: TEMAZEPAM 7.5 MG CAPSULE PO PRN (23:14)
[2023-03-15] MEDS: ACETAMINOPHEN 325 MG TABLET PO PRN (04:44)
[2023-03-15 07:27] LABS: APPEARANCE,URINE CLEAR (CLEAR); BILIRUBIN,URINE NEGATIVE (NEGATIVE); BLOOD, URINE NEGATIVE Ery/uL (NEGATIVE); COLOR,URINE DARK YELLOW (YELLOW); KETONES,URINE TRACE mg/dL (NEGATIVE); LEUKOCYTE ESTERASE ,URINE NEGATIVE (NEGATIVE); NITRITE, URINE NEGATIVE (NEGATIVE); PH,URINE 5.5 (5.0-8.0); PROTEIN,URINE NEGATIVE (NEGATIVE); UGLUCOSE NEGATIVE (NEGATIVE)
[2023-03-15 08:01] LABS: ADD URINE CULTURE NO; BACTERIA,URINE Few /HPF (None Seen); RBC,URINE NONE SEEN /HPF (0-2); SQUAMOUS EPITHELIAL CELL,UR Few /HPF (None Seen); WBC,URINE 0-2 /HPF (0-3)
[2023-03-15] MEDS: DOCUSATE SODIUM 100 MG CAPSULE PO SCH (08:37)
[2023-03-15] MEDS: ASPIRIN 81 MG TAB.CHEW PO SCH (08:38)
[2023-03-15] MEDS: DIVALPROEX SODIUM 500 MG TABLET.DR PO SCH ×3 (08:39→21:23)
[2023-03-15] MEDS: VALSARTAN 40 MG TABLET PO SCH ×2 (08:39→17:11)
[2023-03-15] MEDS: MULTIVITAMINS,THERAGRAN 1 UDTAB TABLET PO SCH (08:39)
[2023-03-15] MEDS: MEMANTINE HCL 5 MG TABLET PO SCH (08:39)
[2023-03-15] MEDS: POLYVINYL ALCOHOL 15 ML BOTTLE EACHEYE SCH ×2 (08:40→21:24)
[2023-03-15] MEDS: METOPROLOL TARTRATE 25 MG TABLET PO SCH ×2 (08:40→17:11)
[2023-03-15 08:51] VITALS: BP 141/69; TEMP 97.4; O2SAT 98
[2023-03-15] MEDS: LORAZEPAM 0.5 MG TABLET PO PRN (10:14)
[2023-03-15 16:00] VITALS: BP 156/72; O2SAT 96
[2023-03-15 21:12] VITALS: BP 138/61; TEMP 98.1; O2SAT 96
[2023-03-15] MEDS: ATORVASTATIN 40 MG TABLET PO SCH (21:23)
[2023-03-15] MEDS: LATANOPROST EYE DROP 0.005% 2.5 ML BOTTLE EACHEYE SCH (21:24)
[2023-03-16 08:00] VITALS: BP 114/53; TEMP 98.7; O2SAT 96
[2023-03-16] MEDS: POLYVINYL ALCOHOL 15 ML BOTTLE EACHEYE SCH ×2 (08:31→21:36)
[2023-03-16] MEDS: MULTIVITAMINS,THERAGRAN 1 UDTAB TABLET PO SCH (08:32)
[2023-03-16] MEDS: METOPROLOL TARTRATE 25 MG TABLET PO SCH ×2 (08:32→17:45)
[2023-03-16] MEDS: DOCUSATE SODIUM 100 MG CAPSULE PO SCH (08:33)
[2023-03-16] MEDS: DIVALPROEX SODIUM 500 MG TABLET.DR PO SCH ×3 (08:33→21:36)
[2023-03-16] MEDS: ASPIRIN 81 MG TAB.CHEW PO SCH (08:33)
[2023-03-16] MEDS: VALSARTAN 40 MG TABLET PO SCH ×2 (08:33→17:45)
[2023-03-16] MEDS: MEMANTINE HCL 5 MG TABLET PO SCH (08:34)
[2023-03-16 16:00] VITALS: BP 117/65; TEMP 98; O2SAT 97
[2023-03-16 20:00] VITALS: BP 119/53; TEMP 97.6; O2SAT 99
[2023-03-16] MEDS: ATORVASTATIN 40 MG TABLET PO SCH (21:36)
[2023-03-16] MEDS: LATANOPROST EYE DROP 0.005% 2.5 ML BOTTLE EACHEYE SCH (21:36)
[2023-03-17 06:34] LABS: BASOPHILS % (AUTO) 0.5 % (0.0-2.0); EOSINOPHILS # (AUTO) 0.4 K/uL (0.0-0.7); EOSINOPHILS % (AUTO) 6.7 % (0.0-6.0); HEMATOCRIT 33 % (39-51); HEMOGLOBIN 11.1 g/dL (13.5-17.5); LYMPHOCYTES # (AUTO) 1.5 K/uL (0.8-4.8); LYMPHOCYTES % (AUTO) 27.3 % (20.0-44.0); MEAN CORPUSCULAR HEMOGLOBIN 31 PG (26.0-33.0); MEAN CORPUSCULAR HGB CONC 33 g/dl (31.0-36.0); MEAN CORPUSCULAR VOLUME 92 fL (80-96); MONOCYTES # (AUTO) 0.5 K/uL (0.1-1.30); MONOCYTES % (AUTO) 9.6 % (2.0-12.0); NEUTROPHILS # (AUTO) 3.1 K/uL (1.8-8.9); NEUTROPHILS % (AUTO) 55.9 % (43.0-81.0); PLATELET COUNT (AUTO) 274 K/uL (150-450); RED BLOOD CELL COUNT(AUTO) 3.63 MIL/uL (4.5-6.0); RED CELL DISTRIBUTION WIDTH 14.3 % (11.5-15.0); WHITE BLOOD COUNT (AUTO) 5.6 K/uL (4.3-11.0)
[2023-03-17 06:59] LABS: ALBUMIN 3.1 g/dL (3.4-5.0); BILIRUBIN,TOTAL 0.8 mg/dL (0.2-1.0); CALCIUM, SERUM 8.8 mg/dL (8.5-10.1); CREATININE 0.9 mg/dL (0.6-1.3); POTASSIUM 4.1 mmol/L (3.5-5.1); TOTAL PROTEIN, SERUM 6.8 g/dL (6.4-8.2)
[2023-03-17 08:00] VITALS: BP 138/88; TEMP 98.6; O2SAT 98
[2023-03-17] MEDS: METOPROLOL TARTRATE 25 MG TABLET PO SCH ×2 (10:14→17:31)
[2023-03-17] MEDS: VALSARTAN 40 MG TABLET PO SCH ×2 (10:14→17:30)
[2023-03-17] MEDS: DIVALPROEX SODIUM 500 MG TABLET.DR PO SCH ×3 (10:15→20:49)
[2023-03-17] MEDS: MULTIVITAMINS,THERAGRAN 1 UDTAB TABLET PO SCH (10:15)
[2023-03-17] MEDS: ASPIRIN 81 MG TAB.CHEW PO SCH (10:15)
[2023-03-17] MEDS: DOCUSATE SODIUM 100 MG CAPSULE PO SCH (10:15)
[2023-03-17] MEDS: MEMANTINE HCL 5 MG TABLET PO SCH (10:15)
[2023-03-17] MEDS: POLYVINYL ALCOHOL 15 ML BOTTLE EACHEYE SCH ×2 (10:26→20:49)
[2023-03-17] MEDS: LORAZEPAM 0.5 MG TABLET PO PRN ×2 (15:16→20:50)
[2023-03-17 16:00] VITALS: BP 136/56; TEMP 97.9; O2SAT 94
[2023-03-17 20:26] VITALS: BP 115/62; TEMP 98.3; O2SAT 98
[2023-03-17] MEDS: QUETIAPINE FUMARATE 25 MG TABLET PO SCH (20:50)
[2023-03-17] MEDS: ATORVASTATIN 40 MG TABLET PO SCH (21:35)
[2023-03-17] MEDS: LATANOPROST EYE DROP 0.005% 2.5 ML BOTTLE EACHEYE SCH (21:35)
[2023-03-17] MEDS: TEMAZEPAM 7.5 MG CAPSULE PO PRN (21:54)
[2023-03-18 08:00] VITALS: BP 144/70; TEMP 98.6; O2SAT 99
[2023-03-18] MEDS: VALSARTAN 40 MG TABLET PO SCH ×2 (08:37→16:56)
[2023-03-18] MEDS: METOPROLOL TARTRATE 25 MG TABLET PO SCH ×2 (08:37→16:55)
[2023-03-18] MEDS: DOCUSATE SODIUM 100 MG CAPSULE PO SCH (08:37)
[2023-03-18] MEDS: MULTIVITAMINS,THERAGRAN 1 UDTAB TABLET PO SCH (08:37)
[2023-03-18] MEDS: ASPIRIN 81 MG TAB.CHEW PO SCH (08:37)
[2023-03-18] MEDS: MEMANTINE HCL 5 MG TABLET PO SCH (08:38)
[2023-03-18] MEDS: POLYVINYL ALCOHOL 15 ML BOTTLE EACHEYE SCH ×2 (08:38→20:52)
[2023-03-18] MEDS: DIVALPROEX SODIUM 500 MG TABLET.DR PO SCH ×3 (08:38→21:10)
[2023-03-18] MEDS: QUETIAPINE FUMARATE 25 MG TABLET PO SCH ×3 (15:55→20:50)
[2023-03-18 16:00] VITALS: BP 117/66; TEMP 97.8; O2SAT 100
[2023-03-18 20:13] VITALS: BP 120/63; TEMP 98.3; O2SAT 99
[2023-03-18] MEDS: ATORVASTATIN 40 MG TABLET PO SCH (21:11)
[2023-03-18] MEDS: LATANOPROST EYE DROP 0.005% 2.5 ML BOTTLE EACHEYE SCH (21:14)
[2023-03-19 08:00] VITALS: BP 145/84; TEMP 97.6; O2SAT 97
[2023-03-19] MEDS: ASPIRIN 81 MG TAB.CHEW PO SCH (09:51)
[2023-03-19] MEDS: MULTIVITAMINS,THERAGRAN 1 UDTAB TABLET PO SCH (09:51)
[2023-03-19] MEDS: DOCUSATE SODIUM 100 MG CAPSULE PO SCH (09:51)
[2023-03-19] MEDS: QUETIAPINE FUMARATE 25 MG TABLET PO SCH ×3 (09:52→21:05)
[2023-03-19] MEDS: VALSARTAN 40 MG TABLET PO SCH ×2 (09:53→16:17)
[2023-03-19] MEDS: MEMANTINE HCL 5 MG TABLET PO SCH (09:54)
[2023-03-19] MEDS: POLYVINYL ALCOHOL 15 ML BOTTLE EACHEYE SCH ×2 (09:54→21:04)
[2023-03-19] MEDS: METOPROLOL TARTRATE 25 MG TABLET PO SCH ×2 (09:54→16:16)
[2023-03-19] MEDS: DIVALPROEX SODIUM 500 MG TABLET.DR PO SCH (09:55)
[2023-03-19] MEDS: ACETAMINOPHEN 325 MG TABLET PO PRN (10:31)
[2023-03-19 16:00] VITALS: BP 143/81; TEMP 97.8; O2SAT 96
[2023-03-19] MEDS: DIVALPROEX SODIUM 250 MG TABLET.DR PO SCH ×2 (16:14→21:05)
[2023-03-19 20:00] VITALS: BP 135/73; TEMP 98.7; O2SAT 96
[2023-03-19] MEDS: ATORVASTATIN 40 MG TABLET PO SCH (21:05)
[2023-03-19] MEDS: LATANOPROST EYE DROP 0.005% 2.5 ML BOTTLE EACHEYE SCH (21:05)
[2023-03-20 08:00] VITALS: BP 113/64; TEMP 97.7; O2SAT 100
[2023-03-20] MEDS: DOCUSATE SODIUM 100 MG CAPSULE PO SCH (08:11)
[2023-03-20] MEDS: DIVALPROEX SODIUM 250 MG TABLET.DR PO SCH ×3 (08:11→21:23)
[2023-03-20] MEDS: MEMANTINE HCL 5 MG TABLET PO SCH (08:11)
[2023-03-20] MEDS: ASPIRIN 81 MG TAB.CHEW PO SCH (08:11)
[2023-03-20] MEDS: MULTIVITAMINS,THERAGRAN 1 UDTAB TABLET PO SCH (08:11)
[2023-03-20] MEDS: VALSARTAN 40 MG TABLET PO SCH ×2 (08:12→16:30)
[2023-03-20] MEDS: METOPROLOL TARTRATE 25 MG TABLET PO SCH ×2 (08:12→16:35)
[2023-03-20] MEDS: QUETIAPINE FUMARATE 25 MG TABLET PO SCH ×3 (08:12→21:23)
[2023-03-20] MEDS: POLYVINYL ALCOHOL 15 ML BOTTLE EACHEYE SCH ×2 (09:44→21:22)
[2023-03-20 16:00] VITALS: BP 115/66; TEMP 97.8; O2SAT 94
[2023-03-20 20:00] VITALS: BP 126/71; TEMP 97.3; O2SAT 99
[2023-03-20] MEDS: ATORVASTATIN 40 MG TABLET PO SCH (21:23)
[2023-03-20] MEDS: LATANOPROST EYE DROP 0.005% 2.5 ML BOTTLE EACHEYE SCH (21:23)
[2023-03-21] VITALS (9 sets, daily range): BP systolic 67–144; BP diastolic 35–71; TEMP 97.6–98; O2SAT 96–100
[2023-03-21] MEDS: DOCUSATE SODIUM 100 MG CAPSULE PO SCH (08:32)
[2023-03-21] MEDS: MULTIVITAMINS,THERAGRAN 1 UDTAB TABLET PO SCH (08:32)
[2023-03-21] MEDS: ASPIRIN 81 MG TAB.CHEW PO SCH (08:32)
[2023-03-21] MEDS: VALSARTAN 40 MG TABLET PO SCH ×2 (08:32→17:00)
[2023-03-21] MEDS: QUETIAPINE FUMARATE 25 MG TABLET PO SCH (08:32)
[2023-03-21] MEDS: DIVALPROEX SODIUM 250 MG TABLET.DR PO SCH ×3 (08:32→21:17)
[2023-03-21] MEDS: MEMANTINE HCL 5 MG TABLET PO SCH (08:32)
[2023-03-21] MEDS: METOPROLOL TARTRATE 25 MG TABLET PO SCH ×2 (08:33→17:00)
[2023-03-21] MEDS: POLYVINYL ALCOHOL 15 ML BOTTLE EACHEYE SCH ×2 (08:36→21:20)
[2023-03-21 11:59] LABS: BASOPHILS % (AUTO) 0.3 % (0.0-2.0); EOSINOPHILS # (AUTO) 0.2 K/uL (0.0-0.7); EOSINOPHILS % (AUTO) 3.5 % (0.0-6.0); HEMATOCRIT 36 % (39-51); HEMOGLOBIN 11.8 g/dL (13.5-17.5); LYMPHOCYTES % (AUTO) 15.2 % (20.0-44.0); MEAN CORPUSCULAR HEMOGLOBIN 30 PG (26.0-33.0); MEAN CORPUSCULAR HGB CONC 33 g/dl (31.0-36.0); MEAN CORPUSCULAR VOLUME 91 fL (80-96); MONOCYTES # (AUTO) 0.5 K/uL (0.1-1.30); MONOCYTES % (AUTO) 6.7 % (2.0-12.0); NEUTROPHILS % (AUTO) 74.3 % (43.0-81.0); PLATELET COUNT (AUTO) 265 K/uL (150-450); RED BLOOD CELL COUNT(AUTO) 3.89 MIL/uL (4.5-6.0); WHITE BLOOD COUNT (AUTO) 6.7 K/uL (4.3-11.0)
[2023-03-21 12:13] LABS: CREATININE 1.2 mg/dL (0.6-1.3); POTASSIUM 4.1 mmol/L (3.5-5.1)
[2023-03-21] MEDS: ATORVASTATIN 40 MG TABLET PO SCH (21:16)
[2023-03-21] MEDS: LATANOPROST EYE DROP 0.005% 2.5 ML BOTTLE EACHEYE SCH (21:20)
[2023-03-22 08:00] VITALS: BP 107/67; TEMP 97.7; O2SAT 96
[2023-03-22] MEDS: METOPROLOL TARTRATE 25 MG TABLET PO SCH ×2 (08:20→17:06)
[2023-03-22] MEDS: DIVALPROEX SODIUM 250 MG TABLET.DR PO SCH ×3 (08:20→21:39)
[2023-03-22] MEDS: MEMANTINE HCL 5 MG TABLET PO SCH (08:20)
[2023-03-22] MEDS: VALSARTAN 40 MG TABLET PO SCH ×2 (08:20→17:06)
[2023-03-22] MEDS: MULTIVITAMINS,THERAGRAN 1 UDTAB TABLET PO SCH (08:20)
[2023-03-22] MEDS: ASPIRIN 81 MG TAB.CHEW PO SCH (08:20)
[2023-03-22] MEDS: DOCUSATE SODIUM 100 MG CAPSULE PO SCH (08:20)
[2023-03-22] MEDS: LORAZEPAM 0.5 MG TABLET PO PRN (08:54)
[2023-03-22] MEDS: POLYVINYL ALCOHOL 15 ML BOTTLE EACHEYE SCH ×2 (10:25→22:03)
[2023-03-22 16:00] VITALS: BP 140/100; TEMP 97.8; O2SAT 96
[2023-03-22 20:18] VITALS: BP 124/78; TEMP 98.2; O2SAT 96
[2023-03-22] MEDS: ATORVASTATIN 40 MG TABLET PO SCH (21:39)
[2023-03-22] MEDS: TEMAZEPAM 7.5 MG CAPSULE PO PRN (21:39)
[2023-03-22] MEDS: LATANOPROST EYE DROP 0.005% 2.5 ML BOTTLE EACHEYE SCH (22:03)
[2023-03-23 06:45] LABS: BASOPHILS % (AUTO) 0.5 % (0.0-2.0); EOSINOPHILS # (AUTO) 0.4 K/uL (0.0-0.7); EOSINOPHILS % (AUTO) 6.8 % (0.0-6.0); HEMATOCRIT 37 % (39-51); HEMOGLOBIN 12.2 g/dL (13.5-17.5); LYMPHOCYTES # (AUTO) 1.4 K/uL (0.8-4.8); LYMPHOCYTES % (AUTO) 25.7 % (20.0-44.0); MEAN CORPUSCULAR HEMOGLOBIN 30 PG (26.0-33.0); MEAN CORPUSCULAR HGB CONC 33 g/dl (31.0-36.0); MEAN CORPUSCULAR VOLUME 92 fL (80-96); MONOCYTES # (AUTO) 0.5 K/uL (0.1-1.30); MONOCYTES % (AUTO) 9.8 % (2.0-12.0); NEUTROPHILS # (AUTO) 3.2 K/uL (1.8-8.9); NEUTROPHILS % (AUTO) 57.2 % (43.0-81.0); PLATELET COUNT (AUTO) 297 K/uL (150-450); RED BLOOD CELL COUNT(AUTO) 4.06 MIL/uL (4.5-6.0); RED CELL DISTRIBUTION WIDTH 13.7 % (11.5-15.0); WHITE BLOOD COUNT (AUTO) 5.5 K/uL (4.3-11.0)
[2023-03-23 07:07] LABS: ALBUMIN 3.3 g/dL (3.4-5.0); BILIRUBIN,TOTAL 0.4 mg/dL (0.2-1.0); CALCIUM, SERUM 9.1 mg/dL (8.5-10.1); POTASSIUM 4.1 mmol/L (3.5-5.1); TOTAL PROTEIN, SERUM 7.3 g/dL (6.4-8.2)
[2023-03-23 08:00] VITALS: BP 146/88; TEMP 98.2; O2SAT 98
[2023-03-23] MEDS: ASPIRIN 81 MG TAB.CHEW PO SCH (08:45)
[2023-03-23] MEDS: MULTIVITAMINS,THERAGRAN 1 UDTAB TABLET PO SCH (08:45)
[2023-03-23] MEDS: MEMANTINE HCL 5 MG TABLET PO SCH (08:45)
[2023-03-23] MEDS: DIVALPROEX SODIUM 250 MG TABLET.DR PO SCH ×3 (08:45→21:21)
[2023-03-23] MEDS: DOCUSATE SODIUM 100 MG CAPSULE PO SCH (08:45)
[2023-03-23] MEDS: VALSARTAN 40 MG TABLET PO SCH ×2 (08:46→16:35)
[2023-03-23] MEDS: POLYVINYL ALCOHOL 15 ML BOTTLE EACHEYE SCH ×2 (08:47→21:21)
[2023-03-23] MEDS: METOPROLOL TARTRATE 25 MG TABLET PO SCH ×2 (08:47→16:36)
[2023-03-23 16:00] VITALS: BP 121/71; TEMP 97.1; O2SAT 95
[2023-03-23 20:27] VITALS: BP 134/65; TEMP 97.4; O2SAT 99
[2023-03-23] MEDS: TEMAZEPAM 7.5 MG CAPSULE PO PRN (21:21)
[2023-03-23] MEDS: LATANOPROST EYE DROP 0.005% 2.5 ML BOTTLE EACHEYE SCH (21:22)
[2023-03-23 23:04] LABS: THYROID STIMULATING HORMONE 2.147 uIU/mL (0.358-3.74)
[2023-03-24 08:00] VITALS: BP 123/76; TEMP 98; O2SAT 96
[2023-03-24] MEDS: POLYVINYL ALCOHOL 15 ML BOTTLE EACHEYE SCH ×3 (08:38→21:12)
[2023-03-24] MEDS: DOCUSATE SODIUM 100 MG CAPSULE PO SCH (08:39)
[2023-03-24] MEDS: MEMANTINE HCL 5 MG TABLET PO SCH (08:39)
[2023-03-24] MEDS: MULTIVITAMINS,THERAGRAN 1 UDTAB TABLET PO SCH (08:39)
[2023-03-24] MEDS: ASPIRIN 81 MG TAB.CHEW PO SCH (08:39)
[2023-03-24] MEDS: METOPROLOL TARTRATE 25 MG TABLET PO SCH ×2 (08:39→16:18)
[2023-03-24] MEDS: DIVALPROEX SODIUM 250 MG TABLET.DR PO SCH ×3 (08:39→21:11)
[2023-03-24] MEDS: VALSARTAN 40 MG TABLET PO SCH ×2 (08:39→16:17)
[2023-03-24 13:07] LABS: FOLIC ACID 16.9 ng/mL (>3.0)
[2023-03-24 16:00] VITALS: BP 103/62; TEMP 97.6; O2SAT 100
[2023-03-24] MEDS: MIDODRINE HCL (5MG) 5 MG TABLET PO SCH (16:18)
[2023-03-24 20:00] VITALS: BP 110/51; TEMP 98.3; O2SAT 97
[2023-03-24] MEDS: TEMAZEPAM 7.5 MG CAPSULE PO PRN (21:12)
[2023-03-24] MEDS: LATANOPROST EYE DROP 0.005% 2.5 ML BOTTLE EACHEYE SCH (21:12)
[2023-03-25 08:00] VITALS: BP 154/72; TEMP 98.7; O2SAT 97
[2023-03-25] MEDS: MULTIVITAMINS,THERAGRAN 1 UDTAB TABLET PO SCH (08:01)
[2023-03-25] MEDS: MEMANTINE HCL 5 MG TABLET PO SCH (08:01)
[2023-03-25] MEDS: METOPROLOL TARTRATE 25 MG TABLET PO SCH (08:01)
[2023-03-25] MEDS: DIVALPROEX SODIUM 250 MG TABLET.DR PO SCH ×3 (08:01→21:39)
[2023-03-25] MEDS: MIDODRINE HCL (5MG) 5 MG TABLET PO SCH ×2 (08:01→17:11)
[2023-03-25] MEDS: DOCUSATE SODIUM 100 MG CAPSULE PO SCH (08:01)
[2023-03-25] MEDS: VALSARTAN 40 MG TABLET PO SCH ×2 (08:01→17:00)
[2023-03-25] MEDS: ASPIRIN 81 MG TAB.CHEW PO SCH (08:01)
[2023-03-25] MEDS: POLYVINYL ALCOHOL 15 ML BOTTLE EACHEYE SCH ×2 (08:02→21:40)
[2023-03-25 16:00] VITALS: BP 93/58; TEMP 98.7; O2SAT 96
[2023-03-25 20:53] VITALS: BP 119/53; TEMP 97.2; O2SAT 97
[2023-03-25] MEDS: LATANOPROST EYE DROP 0.005% 2.5 ML BOTTLE EACHEYE SCH (21:40)
[2023-03-26 08:00] VITALS: BP 118/72; TEMP 97.6; O2SAT 98
[2023-03-26] MEDS: POLYVINYL ALCOHOL 15 ML BOTTLE EACHEYE SCH (08:46)
[2023-03-26] MEDS: MULTIVITAMINS,THERAGRAN 1 UDTAB TABLET PO SCH (08:46)
[2023-03-26] MEDS: DIVALPROEX SODIUM 250 MG TABLET.DR PO SCH (08:46)
[2023-03-26] MEDS: DOCUSATE SODIUM 100 MG CAPSULE PO SCH (08:46)
[2023-03-26] MEDS: MEMANTINE HCL 5 MG TABLET PO SCH (08:46)
[2023-03-26] MEDS: ASPIRIN 81 MG TAB.CHEW PO SCH (08:46)
[2023-03-26] MEDS: MIDODRINE HCL (5MG) 5 MG TABLET PO SCH (08:49)
[2023-03-26 08:54] VITALS: BP 118/72
[2023-03-26] MEDS: VALSARTAN 40 MG TABLET PO SCH (08:54)
== END 2023-03-26 14:53 | DRG 885 ==
LOC: ER 17:18 → GPS 20:20
PROVIDERS: ADMIT Psychiatry & Neurology Psychosomatic Medicine; ATTEND Nurse Practitioner Acute Care
DX: F39 Unspecified mood [affective] disorder (principal); N18.9 Chronic kidney disease, unspecified; G93.41 Metabolic encephalopathy; F02.83 Dementia in other diseases classified elsewhere, unspecified severity, with mood disturbance; G90.3 Multi-system degeneration of the autonomic nervous system; F29 Unspecified psychosis not due to a substance or known physiological condition; F25.9 Schizoaffective disorder, unspecified; G20 Parkinson's disease; E78.5 Hyperlipidemia, unspecified; Z20.822 Contact with and (suspected) exposure to COVID-19; Z73.6 Limitation of activities due to disability; Z86.73 Personal history of transient ischemic attack (TIA), and cerebral infarction without residual deficits; F41.9 Anxiety disorder, unspecified; Z91.148 Patient's other noncompliance with medication regimen for other reason; I12.9 Hypertensive chronic kidney disease with stage 1 through stage 4 chronic kidney disease, or unspecified chronic kidney disease; Z79.899 Other long term (current) drug therapy
CPT/HCPCS: 36415; 70450-TC; 71045-TC; 80048-TC; 80053-TC; 80076-TC; 80164-TC; 81001; 82607-TC; 82962-TC; 83921; 84439-TC; 84443-TC; 85025-TC; 87081-TC; 87086-TC; 93307-TC; 93880-TC; 97112-TC; 97116-TC; 97530-TC; C9803; G0480